=== PATIENT | male | born 1990 | race African-American/Black ===

== ENCOUNTER 2016-02-28 12:18 | Emergency (ER) | payer OTHER ==
[~2016-02-28] VITALS: Ht 165.1 cm; Wt 81.6 kg
--- NOTE | 2016-02-28 12:50 | ED EENT ---
History of Present Illness General Chief Complaint: Facial Problems Stated Complaint: R JAW PAIN/SWELLING Nursing Triage Note: PT REPORTS SWELLING TO R JAW/NECK SINCE MONDAY. Source: patient Exam Limitations: no limitations History of Present Illness Time seen by provider: 12:35 Initial Comments Here with report of swelling to the right jawline neck for the last 2 days. Denies fever or chills. Denies nausea or vomiting. Does have sick contact with diagnosis mono with his daughter. Denies rashes. Denies difficulty swallowing or breathing. Denies earache or tooth pain. Timing/Duration: gradual Location: other (jaw/neck right side) Prearrival Treatment: no prearrival treatment Associated Symptoms: No cough, No drooling, facial pain/swellingNo fever, No sinus infection, sore throatNo tooth pain Allergies and Home Medications Allergies Coded Allergies: No Known Drug Allergies (Unverified , 11/24/14) Home Medications No Active Prescriptions or Reported Meds Review of Systems Constitutional: see HPINo chills, No fever Eyes: No Symptoms Reported Ears: No Symptoms Reported Nose: no symptoms reported Mouth: see HPI Throat: swelling Respiratory: No cough, No short of breath Cardiovascular: no symptoms reportedNo chest pain, No palpitations Gastrointestinal: No nausea, No vomiting Skin: no symptoms reportedNo pruritus, No rash Past Aexamea-Ovdpez-Paumcp Hx Patient Social History Alcohol Use: Occasionally Uses Recreational Drug Use: No Smoking Status: Never a Smoker Recent Foreign Travel: No Contact w/Someone Who Travel: No Recent Infectious Disease Expo: No Physical Abuse Screen: No Sexual Abuse: No Surgeries HX Surgeries: No Respiratory Hx Respiratory Disorders: No Cardiovascular Hx Cardiac Disorders: No Neurological Hx Neurological Disorders: No Reproductive System Hx Reproductive Disorders: No Genitourinary Hx Genitourinary Disorders: No Gastrointestinal Hx Gastrointestinal Disorders: No Musculoskeletal Hx Musculoskeletal Disorders: No Endocrine Hx Endocrine Disorders: No HEENT HX ENT Disorders: No Cancer Hx Cancer: No Psychosocial Hx Psychiatric Problems: No Integumentary HX Skin/Integumentary Disorder: No Blood Transfusions Hx Blood Disorders: No Reviewed Nursing Assessment Reviewed/Agree w Nursing PMH: Yes Family Medical History Significant Family History: No Pertinent Family Hx Physical Exam Vital Signs Vital Sign - Last 12Hours 02/28/16 12:28 Temp 97.6 Pulse 90 Resp 18 B/P 143/87 Pulse Ox 100 General Appearance: WD/WN no apparent distress (what was, alert) Eyes: bilateral eye EOMI, bilateral eye PERRL, bilateral eye normal inspection Ears: bilateral ear TM normal, bilateral ear auricle normal, bilateral ear canal normal Nose: other (mild erythema with clear rhinorrhea) Mouth/Throat: pharynx normalNo dental tenderness, mandibular swelling (mild on right side) pharynx tendernessNo tonsillar exudate Neck: full range of motion supple lymphadenopathy (R) Cardiovascular: regular rate, rhythm no murmur Respiratory: lungs clear normal breath sounds Neurologic/Psychiatric: alert oriented x 3 Skin: normal color warm/dry Progress/Results/Core Measures Results/Orders Lab Results Laboratory Tests Test 02/28/16 12:59 Range/Units Group A Streptococcus Screen NEGATIVE NEGATIVE Monoscreen NEGATIVE NEGATIVE My Orders Orders-MARY RUTHERFORD MD Monotest (02/28/16 12:39) Rapid Strep A Screen (02/28/16 12:39) Dexamethasone Pf Injection (Decadron Pf (02/28/16 13:25) Vital Signs/I&O Vital Sign - Last 12Hours 02/28/16 12:28 Temp 97.6 Pulse 90 Resp 18 B/P 143/87 Pulse Ox 100 Blood Pressure Mean: 105 Progress Note : Progress Note Seen and evaluated. Monoscreen and rapid strep ordered. Monitor patient. 1326 : Strep and mono are negative. Likely pharyngitis viral upper respiratory infection. Decadron 10 mg IM. Discharged home with return precautions. Patient verbalize understanding instructions and agreement with plan. Departure Impression Impression: Primary Impression: Pharyngitis with viral syndrome Disposition: 01 HOME, SELF-CARE Condition: Stable Departure-Patient Inst. Decision time for Depature: 13:27 Referrals: NO,LOCAL PHYSICIAN (PCP/Family) Primary Care Physician Patient Instructions: Viral Pharyngitis (DC) Add. Discharge Instructions: All discharge instructions reviewed with patient and/or family. Voiced understanding. This is likely a viral syndrome but should be reevaluated if you do not have improvement within one week. Follow-up with your doctor within one week for recheck and further evaluation. Return for worse pain, fever, vomiting, weakness, breathing problems, increased swelling, difficulties with swallowing or other concerns as needed. You may take ibuprofen 800 mg every 8 hours as needed for pain. You may take Tylenol 1000 mg every 8 hours as needed for pain. Drink plenty of fluids. Scripts No Active Prescriptions or Reported Meds MARY RUTHERFORD MD Feb 28, 2016 12:50 MARY RUTHERFORD MD Feb 28, 2016 12:50
[2016-02-28] MEDS ORDERED: DEXAMETHASONE PF 10 MG/ML (DECADRON) VIAL IM STA (13:25)
[2016-02-28 13:46] VITALS: BP 121/81
== END 2016-02-28 13:46 | disposition home or self-care (01) ==
LOC: EDUNIT# 12:18 → ER 12:20
DX: J02.8 Acute pharyngitis due to other specified organisms (principal)
CPT/HCPCS: 36415; 86308; 87430; 96372; 99283